=== PATIENT | male | born 1995 | race Caucasian/White ===

== ENCOUNTER 2017-07-01 05:58 | Emergency (ER) | payer OTHER ==
[~2017-07-01] VITALS: Ht 175.3 cm; Wt 82.0 kg
[2017-07-01 06:49] LABS: BASOPHILS % 0.4 % (0.0-2.0); CHLORIDE 110 mEq/L (98-107); EOSINOPHILS % 0.7 % (0.0-5.0); HEMATOCRIT. 47.7 % (42.0-52.0); HEMOGLOBIN. 16.6 g/dL (14.0-18.0); LYMPHOCYTES % 13.7 % (20.0-50.0); MEAN CORPUSCULAR VOLUME 89.1 fL (80.0-94.0); MEAN PLATELET VOLUME 8.4 fl (7.4-10.4); MONOCYTES % 9.1 % (2.0-8.0); NEUTROPHILS % 76.1 % (40.0-76.0); PLATELET 250 x1000/uL (130-400); RED BLOOD CELL COUNT 5.35 mill/uL (4.7-6.1); RED CELL DISTRIBUTION WIDTH 13.2 % (11.6-14.6)
[2017-07-01 06:58] LABS: CARBON DIOXIDE 17 mEq/L (21-32); ETHANOL BLOOD < 10 mg/dL
[2017-07-01] MEDS ORDERED: LORAZEPAM 2MG/ML CPJ IM STA (07:14)
[2017-07-01] MEDS ORDERED: OLANZAPINE 10 MG/VIAL IM ONE (07:15)
[2017-07-01 07:30] LABS: CLARITY URINE CLEAR (CLEAR); COLOR URINE DARK YELLOW (YELLOW); KETONES URINE 3+ (NEGATIVE); LEUKOCYTE ESTERASE URINE NEGATIVE (NEGATIVE); NITRITE URINE NEGATIVE (NEGATIVE); OCCULT BLOOD URINE NEGATIVE (NEGATIVE); PH URINE 5.5 (4.5-8.0); PROTEIN URINE TRACE (NEGATIVE); SPECIFIC GRAVITY URINE 1.032 (1.005-1.030)
[2017-07-01] MEDS ORDERED: DIPHENHYDRAMINE 50MG/ML VIAL IM STA (07:43)
[2017-07-01] MEDS ORDERED: LORAZEPAM 1MG TABLET PO ONE (07:45)
[2017-07-01 08:21] LABS: *AMPHETAMINES SCREEN URINE PRESUMTIVE POSITIVE (NEGATIVE); *BARBITURATES SCREEN URINE NEGATIVE (NEGATIVE); *BENZODIAZEPINES SCREEN URINE PRESUMTIVE POSITIVE (NEGATIVE); *COCAINE SCREEN URINE NEGATIVE (NEGATIVE); CANNABINOID URINE SCREEN PRESUMTIVE POSITIVE (NEGATIVE); METHADONE URINE SCREEN NEGATIVE (NEGATIVE); OPIATES URINE SCREEN NEGATIVE (NEGATIVE); PHENCYCLIDINE URINE SCREEN NEGATIVE (NEGATIVE)
[2017-07-01 14:20] VITALS: BP 128/85
== END 2017-07-01 14:51 | disposition home or self-care (01) ==
LOC: ER 05:58
DX: F15.10 Other stimulant abuse, uncomplicated (principal); J45.909 Unspecified asthma, uncomplicated; F32.9 Major depressive disorder, single episode, unspecified; F20.9 Schizophrenia, unspecified
CPT/HCPCS: 36415; 80053; 80305; 81001; 85025; 96372; 99284; G0482; J1200; J2060; J3490; Z7610

== ENCOUNTER 2017-07-14 17:48 | Emergency (ER) | payer OTHER ==
[~2017-07-14] VITALS: Ht 175.3 cm; Wt 81.0 kg
[2017-07-14] MEDS ORDERED: SODIUM CHLORIDE 0.9% 1,000 ML IV ONE ×2 (18:25→22:27)
[2017-07-14] MEDS ORDERED: LORAZEPAM 2MG/ML CPJ IV ONE ×2 (18:30→19:45)
[2017-07-14 18:45] LABS: BASOPHILS % 0.4 % (0.0-2.0); CHLORIDE 105 mEq/L (98-107); EOSINOPHILS % 0.5 % (0.0-5.0); HEMATOCRIT. 46.3 % (42.0-52.0); HEMOGLOBIN. 16.2 g/dL (14.0-18.0); LYMPHOCYTES % 9.8 % (20.0-50.0); MEAN CORPUSCULAR HEMOGLOBIN 30.7 pg (28.0-32.0); MEAN CORPUSCULAR VOLUME 87.8 fL (80.0-94.0); MEAN PLATELET VOLUME 8.5 fl (7.4-10.4); MONOCYTES % 5.8 % (2.0-8.0); NEUTROPHILS % 83.5 % (40.0-76.0); PLATELET 273 x1000/uL (130-400); RED BLOOD CELL COUNT 5.27 mill/uL (4.7-6.1); RED CELL DISTRIBUTION WIDTH 13.2 % (11.6-14.6)
[2017-07-14 18:50] LABS: CARBON DIOXIDE 18 mEq/L (21-32)
[2017-07-14] MEDS ORDERED: HALOPERIDOL LACTATE 5MG/ML VIAL IM ONE ×2 (20:14→20:15)
[2017-07-15 00:35] LABS: *AMPHETAMINES SCREEN URINE PRESUMTIVE POSITIVE (NEGATIVE); *BARBITURATES SCREEN URINE NEGATIVE (NEGATIVE); *BENZODIAZEPINES SCREEN URINE NEGATIVE (NEGATIVE); *COCAINE SCREEN URINE NEGATIVE (NEGATIVE); CANNABINOID URINE SCREEN PRESUMTIVE POSITIVE (NEGATIVE); METHADONE URINE SCREEN NEGATIVE (NEGATIVE); OPIATES URINE SCREEN NEGATIVE (NEGATIVE); PHENCYCLIDINE URINE SCREEN NEGATIVE (NEGATIVE)
[2017-07-15 04:15] VITALS: BP 127/74
== END 2017-07-15 04:37 | disposition home or self-care (01) ==
LOC: ER 18:03
DX: F19.959 Other psychoactive substance use, unspecified with psychoactive substance-induced psychotic disorder, unspecified (principal); F20.9 Schizophrenia, unspecified; F32.9 Major depressive disorder, single episode, unspecified; J45.909 Unspecified asthma, uncomplicated; F17.200 Nicotine dependence, unspecified, uncomplicated; F12.10 Cannabis abuse, uncomplicated; F15.10 Other stimulant abuse, uncomplicated
CPT/HCPCS: 36415; 80048; 80305; 85025; 93005; 96361; 96372; 96374; 96376; 99285; J1630; J2060; J7030; Z7610; A4315

== ENCOUNTER 2017-09-15 08:14 | Emergency (ER) | payer OTHER ==
[~2017-09-15] VITALS: Ht 172.7 cm; Wt 85.0 kg
[2017-09-15] MEDS ORDERED: SODIUM CHLORIDE 0.9% 1,000 ML IV ONE (08:36)
[2017-09-15] MEDS ORDERED: LORAZEPAM 2MG/ML CPJ IV ONE (08:45)
[2017-09-15 09:07] LABS: BASOPHILS % 0.4 % (0.0-2.0); EOSINOPHILS % 3.4 % (0.0-5.0); HEMATOCRIT. 45.6 % (42.0-52.0); HEMOGLOBIN. 15.8 g/dL (14.0-18.0); LYMPHOCYTES % 18.7 % (20.0-50.0); MEAN CORPUSCULAR HEMOGLOBIN 30.3 pg (28.0-32.0); MEAN CORPUSCULAR VOLUME 87.5 fL (80.0-94.0); MEAN PLATELET VOLUME 8.3 fl (7.4-10.4); MONOCYTES % 7.3 % (2.0-8.0); NEUTROPHILS % 70.2 % (40.0-76.0); PLATELET 252 x1000/uL (130-400); RED BLOOD CELL COUNT 5.21 mill/uL (4.7-6.1); RED CELL DISTRIBUTION WIDTH 13.4 % (11.6-14.6)
[2017-09-15 09:20] LABS: CHLORIDE 108 mEq/L (98-107)
[2017-09-15 09:25] LABS: ETHANOL BLOOD < 10 mg/dL
[2017-09-15 09:50] LABS: *AMPHETAMINES SCREEN URINE PRESUMTIVE POSITIVE (NEGATIVE); *BARBITURATES SCREEN URINE NEGATIVE (NEGATIVE); *BENZODIAZEPINES SCREEN URINE NEGATIVE (NEGATIVE); *COCAINE SCREEN URINE NEGATIVE (NEGATIVE); CANNABINOID URINE SCREEN PRESUMTIVE POSITIVE (NEGATIVE); METHADONE URINE SCREEN NEGATIVE (NEGATIVE); OPIATES URINE SCREEN NEGATIVE (NEGATIVE); PHENCYCLIDINE URINE SCREEN NEGATIVE (NEGATIVE)
[2017-09-15 10:53] VITALS: BP 125/77
== END 2017-09-15 11:07 | disposition home or self-care (01) ==
LOC: ER 08:14
DX: R00.2 Palpitations (principal); F15.10 Other stimulant abuse, uncomplicated; F41.9 Anxiety disorder, unspecified; J45.909 Unspecified asthma, uncomplicated; F32.9 Major depressive disorder, single episode, unspecified; F20.9 Schizophrenia, unspecified; F12.10 Cannabis abuse, uncomplicated
CPT/HCPCS: 36415; 71045; 80048; 80305; 80307; 80329; 85025; 93005; 96361; 96374; 99285; G0482; J2060; J7030

== ENCOUNTER 2023-11-14 23:12 | Emergency (ER) | payer MEDICAID, OTHER ==
[~2023-11-14] VITALS: Ht 167.6 cm; Wt 90.0 kg
[2023-11-14 23:14] VITALS: O2SAT 99
[2023-11-15 00:08] VITALS: TEMP 98.4
[2023-11-15] MEDS: SODIUM CHLORIDE 0.9% 1,000 ML IV ONE (00:21)
[2023-11-15 00:25] LABS: BASOPHILS % 0.4 % (0.0-2.0); EOSINOPHILS % 0.1 % (0.0-5.0); HEMATOCRIT. 44.1 % (42.0-52.0); HEMOGLOBIN. 15.7 g/dL (14.0-18.0); LYMPHOCYTES % 18.1 % (20.0-50.0); MEAN CORPUSCULAR HEMOGLOBIN 30.9 pg (28.0-32.0); MEAN CORPUSCULAR HGB CONC 35.5 g/dL (31.0-37.0); MEAN CORPUSCULAR VOLUME 87.1 fL (80.0-94.0); MEAN PLATELET VOLUME 8.4 fl (7.4-10.4); NEUTROPHILS % 72.4 % (40.0-76.0); PLATELET 293 x1000/uL (130-400); RED BLOOD CELL COUNT 5.07 mill/uL (4.7-6.1); RED CELL DISTRIBUTION WIDTH 13.4 % (11.6-14.6)
[2023-11-15 00:35] LABS: CHLORIDE 110 mEq/L (98-107); POTASSIUM 3.2 mEq/L (3.5-5.1); SODIUM 142 mEq/L (136-145)
[2023-11-15 00:36] LABS: CALCIUM 9.8 mg/dL (8.7-10.4); CARBON DIOXIDE 18 mEq/L (21-32)
[2023-11-15 00:41] LABS: CREATININE 1.1 mg/dL (0.6-1.3); GLUCOSE 98 mg/dL (70-105); UREA NITROGEN BLOOD 12 mg/dL (9-23)
[2023-11-15 00:43] LABS: ACETAMINOPHEN < 2 ug/mL (10-30); ALANINE AMINOTRANSFERASE 129 IU/L (10-49); ALBUMIN 5.4 g/dL (3.2-4.8); ASPARTATE AMINOTRANSFERASE 76 IU/L (<34); BILIRUBIN TOTAL 2.3 mg/dL (0.1-1.0); PROTEIN TOTAL 8.8 g/dL (6.0-8.3)
[2023-11-15 00:45] LABS: ETHANOL BLOOD < 10 mg/dL (<10)
[2023-11-15] MEDS: POTASSIUM CHLORIDE 20MEQ/PACKET PO NR (01:28)
[2023-11-15 02:00] VITALS: BP 151/89; PULSE 87; RESP 20
== END 2023-11-15 04:04 | disposition left against medical advice (07) ==
LOC: ER 23:12
DX: F23 Brief psychotic disorder (principal); F12.10 Cannabis abuse, uncomplicated; F15.10 Other stimulant abuse, uncomplicated; J45.909 Unspecified asthma, uncomplicated; F32.9 Major depressive disorder, single episode, unspecified; I10 Essential (primary) hypertension
CPT/HCPCS: 36415; 93005; 99284; 80053; 80307; 80329; 80320; 85025; 96360; J7030; G0480

== ENCOUNTER 2023-11-15 04:50 | Emergency (ER) | payer MEDICAID ==
[~2023-11-15] VITALS: Ht 177.8 cm; Wt 102.0 kg
[2023-11-15 05:06] VITALS: O2SAT 98
[2023-11-15 05:48] LABS: BASOPHILS % 0.5 % (0.0-2.0); EOSINOPHILS % 0.3 % (0.0-5.0); HEMATOCRIT. 43.8 % (42.0-52.0); HEMOGLOBIN. 15.3 g/dL (14.0-18.0); LYMPHOCYTES % 20.2 % (20.0-50.0); MEAN CORPUSCULAR HEMOGLOBIN 30.9 pg (28.0-32.0); MEAN CORPUSCULAR HGB CONC 34.9 g/dL (31.0-37.0); MEAN CORPUSCULAR VOLUME 88.4 fL (80.0-94.0); MEAN PLATELET VOLUME 8.4 fl (7.4-10.4); MONOCYTES % 9.2 % (2.0-8.0); NEUTROPHILS % 69.8 % (40.0-76.0); PLATELET 301 x1000/uL (130-400); RED BLOOD CELL COUNT 4.96 mill/uL (4.7-6.1); RED CELL DISTRIBUTION WIDTH 13.2 % (11.6-14.6); WHITE BLOOD COUNT 13.4 x1000/uL (4.5-11.0)
[2023-11-15 05:54] LABS: CHLORIDE 111 mEq/L (98-107); POTASSIUM 3.5 mEq/L (3.5-5.1); SODIUM 140 mEq/L (136-145)
[2023-11-15 05:55] LABS: CALCIUM 9.5 mg/dL (8.7-10.4); CARBON DIOXIDE 19 mEq/L (21-32)
[2023-11-15] MEDS: LORAZEPAM 1MG TABLET PO ONE (05:58)
[2023-11-15 06:00] LABS: GLUCOSE 89 mg/dL (70-105); UREA NITROGEN BLOOD 11 mg/dL (9-23)
[2023-11-15 06:01] LABS: ETHANOL BLOOD < 10 mg/dL (<10)
[2023-11-15 06:02] LABS: ACETAMINOPHEN < 2 ug/mL (10-30); ALANINE AMINOTRANSFERASE 129 IU/L (10-49); ALBUMIN 5.4 g/dL (3.2-4.8); ASPARTATE AMINOTRANSFERASE 90 IU/L (<34); BILIRUBIN TOTAL 2.7 mg/dL (0.1-1.0); PROTEIN TOTAL 8.8 g/dL (6.0-8.3)
[2023-11-15 06:07] LABS: CLARITY URINE CLEAR (CLEAR); COLOR URINE YELLOW (YELLOW); GLUCOSE URINE NEGATIVE (NEGATIVE); KETONES URINE 4+ (NEGATIVE); LEUKOCYTE ESTERASE URINE NEGATIVE (NEGATIVE); NITRITE URINE NEGATIVE (NEGATIVE); OCCULT BLOOD URINE NEGATIVE (NEGATIVE); PH URINE 6.5 (4.5-8.0); PROTEIN URINE 1+ (NEGATIVE); SPECIFIC GRAVITY URINE 1.025 (1.005-1.030)
[2023-11-15 06:15] LABS: *AMPHETAMINES SCREEN URINE PRESUMPTIVE POSITIVE (NEGATIVE); *BARBITURATES SCREEN URINE NEGATIVE (NEGATIVE); *BENZODIAZEPINES SCREEN URINE NEGATIVE (NEGATIVE); *COCAINE SCREEN URINE NEGATIVE (NEGATIVE); CANNABINOID URINE SCREEN PRESUMPTIVE POSITIVE (NEGATIVE); ECSTASY MDMA SCREEN URINE NEGATIVE (NEGATIVE); METHADONE URINE SCREEN NEGATIVE (NEGATIVE); OPIATES URINE SCREEN NEGATIVE (NEGATIVE); PHENCYCLIDINE URINE SCREEN NEGATIVE (NEGATIVE)
[2023-11-15] MEDS: OLANZAPINE 10 MG/VIAL IM ONE (07:11)
[2023-11-15 07:28] LABS: BACTERIA URINE NONE SEEN; RBC URINE 0-2 /hpf (0-2); SQUAMOUS EPITHELIAL CELL URINE NONE SEEN /lpf (RARE/1+); WBC URINE 0-2 /hpf (0-2)
[2023-11-15 13:28] VITALS: BP 131/78; PULSE 78; RESP 17; TEMP 98.2
== END 2023-11-15 13:31 | disposition home or self-care (01) ==
LOC: ER 05:13
DX: F15.10 Other stimulant abuse, uncomplicated (principal); J45.909 Unspecified asthma, uncomplicated; F20.9 Schizophrenia, unspecified; I10 Essential (primary) hypertension; Z20.822 Contact with and (suspected) exposure to COVID-19
CPT/HCPCS: 80053; 80305; 81003; 80307; 80329; 80320; 85025; 36415; 96372; 99285; 87426; J3490; G0480

== ENCOUNTER 2024-09-15 16:00 | Emergency (ER) | payer OTHER ==
[~2024-09-15] VITALS: Ht 170.2 cm; Wt 100.0 kg
[2024-09-15 16:02] VITALS: O2SAT 100
[2024-09-15] MEDS: OLANZAPINE 10 MG/VIAL IM STA (16:07)
[2024-09-15] MEDS: DIPHENHYDRAMINE 50MG/ML VIAL IM STA (16:25)
[2024-09-15 16:34] LABS: CLARITY URINE CLEAR (CLEAR); COLOR URINE DARK YELLOW (YELLOW); GLUCOSE URINE NEGATIVE (NEGATIVE); KETONES URINE 2+ (NEGATIVE); LEUKOCYTE ESTERASE URINE TRACE (NEGATIVE); NITRITE URINE NEGATIVE (NEGATIVE); OCCULT BLOOD URINE NEGATIVE (NEGATIVE); PH URINE 5.5 (4.5-8.0); PROTEIN URINE 2+ (NEGATIVE); SPECIFIC GRAVITY URINE 1.035 (1.005-1.030)
[2024-09-15] MEDS: LORAZEPAM 2MG/ML INJ IM ONE (16:42)
[2024-09-15] MEDS: ZIPRASIDONE MESYLATE 20MG/VIAL IM ONE (16:42)
[2024-09-15 16:47] LABS: *AMPHETAMINES SCREEN URINE PRESUMPTIVE POSITIVE (NEGATIVE); *BARBITURATES SCREEN URINE NEGATIVE (NEGATIVE); *BENZODIAZEPINES SCREEN URINE NEGATIVE (NEGATIVE)
[2024-09-15 16:48] LABS: *COCAINE SCREEN URINE NEGATIVE (NEGATIVE); CANNABINOID URINE SCREEN PRESUMPTIVE POSITIVE (NEGATIVE); ECSTASY MDMA SCREEN URINE CONF.TEST INDICATED (NEGATIVE); METHADONE URINE SCREEN NEGATIVE (NEGATIVE); OPIATES URINE SCREEN NEGATIVE (NEGATIVE); PHENCYCLIDINE URINE SCREEN NEGATIVE (NEGATIVE)
[2024-09-15 16:52] LABS: BACTERIA URINE 1+; RBC URINE 0-2 /hpf (0-2); SQUAMOUS EPITHELIAL CELL URINE FEW /lpf (RARE/1+); WBC URINE 0-2 /hpf (0-2)
[2024-09-15 18:32] LABS: BASOPHILS % 0.5 % (0.0-2.0); EOSINOPHILS % 0.7 % (0.0-5.0); HEMATOCRIT. 43.5 % (42.0-52.0); HEMOGLOBIN. 15.1 g/dL (14.0-18.0); LYMPHOCYTES % 13.5 % (20.0-50.0); MEAN CORPUSCULAR HEMOGLOBIN 30.7 pg (28.0-32.0); MEAN CORPUSCULAR HGB CONC 34.6 g/dL (31.0-37.0); MEAN CORPUSCULAR VOLUME 88.8 fL (80.0-94.0); MEAN PLATELET VOLUME 8.5 fl (7.4-10.4); NEUTROPHILS % 77.3 % (40.0-76.0); PLATELET 254 x1000/uL (130-400); RED CELL DISTRIBUTION WIDTH 13.4 % (11.6-14.6); WHITE BLOOD COUNT 10.3 x1000/uL (4.5-11.0)
[2024-09-15 18:33] LABS: CHLORIDE 106 mEq/L (98-107); POTASSIUM 3.5 mEq/L (3.5-5.1); SODIUM 141 mEq/L (136-145)
[2024-09-15 18:34] LABS: CALCIUM 9.5 mg/dL (8.7-10.4); CARBON DIOXIDE 22 mEq/L (21-32)
[2024-09-15 18:39] LABS: CREATININE 0.8 mg/dL (0.6-1.3); GLUCOSE 92 mg/dL (70-105); UREA NITROGEN BLOOD 13 mg/dL (9-23)
[2024-09-15 18:40] LABS: ETHANOL BLOOD < 10 mg/dL (<10)
[2024-09-15 18:41] LABS: ACETAMINOPHEN < 2 ug/mL (10-30)
[2024-09-16 08:00] VITALS: BP 123/79; PULSE 99; RESP 18; TEMP 36.9; O2SAT 99
== END 2024-09-16 09:15 | disposition home or self-care (01) ==
LOC: ER 16:00
DX: F19.10 Other psychoactive substance abuse, uncomplicated (principal); F15.10 Other stimulant abuse, uncomplicated; I10 Essential (primary) hypertension; J45.909 Unspecified asthma, uncomplicated; Z20.822 Contact with and (suspected) exposure to COVID-19; Z91.148 Patient's other noncompliance with medication regimen for other reason; Z98.890 Other specified postprocedural states; Z86.59 Personal history of other mental and behavioral disorders
CPT/HCPCS: 80305; 80048; 81003; 80307; 80329; 80320; 85025; 36415; 96372; 99285; 87426; J3490; J1200; J2060; J3486; G0480

== ENCOUNTER 2024-11-07 09:15 | Emergency (ER) | payer OTHER ==
[~2024-11-07] VITALS: Ht 170.2 cm; Wt 77.0 kg
[2024-11-07 09:21] VITALS: BP 142/94; PULSE 131; RESP 16; TEMP 36.3; O2SAT 96
[2024-11-07] MEDS ORDERED: SODIUM CHLORIDE 0.9% 1,000 ML IV ONE (09:45)
[2024-11-07 10:08] LABS: HEMATOCRIT 47.5 % (42.0-52.0); HEMOGLOBIN 16.2 g/dL (14.0-18.0); MEAN CORPUSCULAR HEMOGLOBIN 29.8 pg (28.0-32.0); MEAN CORPUSCULAR HGB CONC 34.1 g/dL (31.0-37.0); MEAN CORPUSCULAR VOLUME 87.4 fL (80.0-94.0); PLATELET 318 x1000/uL (130-400); RED BLOOD CELL COUNT 5.43 mill/uL (4.7-6.1); RED CELL DISTRIBUTION WIDTH 13.6 % (11.6-14.6); WHITE BLOOD COUNT 12.3 x1000/uL (4.5-11.0)
[2024-11-07 10:19] LABS: CHLORIDE 106 mEq/L (98-107); POTASSIUM 3.3 mEq/L (3.5-5.1); SODIUM 139 mEq/L (136-145)
[2024-11-07 10:20] LABS: CALCIUM 9.9 mg/dL (8.7-10.4); CARBON DIOXIDE 23 mEq/L (21-32)
[2024-11-07 10:25] LABS: CREATININE 1.2 mg/dL (0.6-1.3); ETHANOL BLOOD < 10 mg/dL (<10); GLUCOSE 103 mg/dL (70-105); UREA NITROGEN BLOOD 13 mg/dL (9-23)
== END 2024-11-07 10:25 | disposition left against medical advice (07) ==
LOC: ER 09:15
DX: F20.9 Schizophrenia, unspecified (principal); I10 Essential (primary) hypertension; J45.909 Unspecified asthma, uncomplicated; F12.90 Cannabis use, unspecified, uncomplicated; F15.90 Other stimulant use, unspecified, uncomplicated
CPT/HCPCS: 80048; 80320; 85027; 36415; 99283; J7030; G0480

== ENCOUNTER 2024-12-18 19:55 | Emergency (ER) | payer OTHER ==
[~2024-12-18] VITALS: Ht 167.6 cm; Wt 82.0 kg
[2024-12-18] MEDS: OLANZAPINE 10 MG/VIAL IM STA (21:05)
[2024-12-18] MEDS: LORAZEPAM 1MG TABLET PO ONE (21:05)
[2024-12-18 21:29] LABS: BASOPHILS % 0.3 % (0.0-2.0); EOSINOPHILS % 0.2 % (0.0-5.0); HEMATOCRIT. 44.4 % (42.0-52.0); HEMOGLOBIN. 15.4 g/dL (14.0-18.0); LYMPHOCYTES % 10.7 % (20.0-50.0); MEAN CORPUSCULAR HEMOGLOBIN 29.9 pg (28.0-32.0); MEAN CORPUSCULAR HGB CONC 34.7 g/dL (31.0-37.0); MEAN CORPUSCULAR VOLUME 86.3 fL (80.0-94.0); MEAN PLATELET VOLUME 8.8 fl (7.4-10.4); NEUTROPHILS % 81.8 % (40.0-76.0); PLATELET 277 x1000/uL (130-400); RED BLOOD CELL COUNT 5.15 mill/uL (4.7-6.1); RED CELL DISTRIBUTION WIDTH 13.6 % (11.6-14.6); WHITE BLOOD COUNT 18.5 x1000/uL (4.5-11.0)
[2024-12-18 21:29] LABS: CLARITY URINE CLOUDY (CLEAR); COLOR URINE DARK YELLOW (YELLOW); GLUCOSE URINE NEGATIVE (NEGATIVE); KETONES URINE 4+ (NEGATIVE); LEUKOCYTE ESTERASE URINE 3+ (NEGATIVE); NITRITE URINE NEGATIVE (NEGATIVE); OCCULT BLOOD URINE TRACE (NEGATIVE); PH URINE 5.5 (4.5-8.0); PROTEIN URINE 2+ (NEGATIVE)
[2024-12-18 21:38] LABS: BACTERIA URINE 3+; SQUAMOUS EPITHELIAL CELL URINE RARE /lpf (RARE/1+); WBC URINE 15-25 /hpf (0-2)
[2024-12-18 21:40] LABS: CHLORIDE 103 mEq/L (98-107); POTASSIUM 3.3 mEq/L (3.5-5.1); SODIUM 140 mEq/L (136-145)
[2024-12-18 21:41] LABS: CARBON DIOXIDE 16 mEq/L (21-32)
[2024-12-18 21:42] LABS: CALCIUM 10.1 mg/dL (8.7-10.4)
[2024-12-18 21:45] LABS: *AMPHETAMINES SCREEN URINE PRESUMPTIVE POSITIVE (NEGATIVE); *BARBITURATES SCREEN URINE NEGATIVE (NEGATIVE); *BENZODIAZEPINES SCREEN URINE NEGATIVE (NEGATIVE); *COCAINE SCREEN URINE PRESUMPTIVE POSITIVE (NEGATIVE); CANNABINOID URINE SCREEN PRESUMPTIVE POSITIVE (NEGATIVE); ECSTASY MDMA SCREEN URINE CONF.TEST INDICATED (NEGATIVE); METHADONE URINE SCREEN NEGATIVE (NEGATIVE); OPIATES URINE SCREEN NEGATIVE (NEGATIVE); PHENCYCLIDINE URINE SCREEN NEGATIVE (NEGATIVE)
[2024-12-18 21:46] LABS: CREATININE 1.1 mg/dL (0.6-1.3); GLUCOSE 83 mg/dL (70-105); UREA NITROGEN BLOOD 21 mg/dL (9-23)
[2024-12-18 21:47] LABS: ETHANOL BLOOD < 10 mg/dL (<10)
[2024-12-18 21:48] LABS: ACETAMINOPHEN < 2 ug/mL (10-30)
[2024-12-18] MEDS: DOXYCYCLINE HYCLATE 100MG CAPSULE PO NR (22:20)
[2024-12-18] MEDS: DIPHENHYDRAMINE 50MG/ML VIAL IM NR (22:20)
[2024-12-18] MEDS: CEFTRIAXONE SODIUM 500MG VIAL IM NR (22:20)
[2024-12-18 23:00] VITALS: O2SAT 96
[2024-12-19 06:00] VITALS: BP 134/79; PULSE 101; RESP 16; TEMP 36.9; O2SAT 99
== END 2024-12-19 09:59 | disposition home or self-care (01) ==
LOC: ER 19:55
DX: F20.9 Schizophrenia, unspecified (principal); R44.0 Auditory hallucinations; I10 Essential (primary) hypertension; J45.909 Unspecified asthma, uncomplicated; F15.10 Other stimulant abuse, uncomplicated; F12.90 Cannabis use, unspecified, uncomplicated; Z20.822 Contact with and (suspected) exposure to COVID-19; Z79.899 Other long term (current) drug therapy
CPT/HCPCS: 80305; 80048; 81003; 80307; 80329; 80320; 85025; 87086; 36415; 96372; 99285; 87426; J3490; J0696; J1200; Z7610; G0480

== ENCOUNTER 2024-12-21 13:59 | Emergency (ER) | payer OTHER ==
[~2024-12-21] VITALS: Ht 172.7 cm; Wt 82.0 kg
[2024-12-21 14:02] VITALS: O2SAT 99
[2024-12-21] MEDS: LORAZEPAM 1MG TABLET PO ONE (16:08)
[2024-12-21 17:37] VITALS: BP 150/94; PULSE 125; RESP 16; O2SAT 98
== END 2024-12-21 18:01 | disposition home or self-care (01) ==
LOC: ER 13:59
DX: F15.10 Other stimulant abuse, uncomplicated (principal); F14.10 Cocaine abuse, uncomplicated; F31.9 Bipolar disorder, unspecified; Z86.59 Personal history of other mental and behavioral disorders
CPT/HCPCS: 99283

== ENCOUNTER 2024-12-21 19:04 | Emergency (ER) | payer OTHER ==
[~2024-12-21] VITALS: Ht 167.6 cm; Wt 64.0 kg
[2024-12-21 19:22] VITALS: O2SAT 100
[2024-12-21 20:15] LABS: BASOPHILS % 0.8 % (0.0-2.0); EOSINOPHILS % 0.4 % (0.0-5.0); HEMOGLOBIN. 15.3 g/dL (14.0-18.0); LYMPHOCYTES % 17.4 % (20.0-50.0); MEAN CORPUSCULAR HEMOGLOBIN 29.6 pg (28.0-32.0); MEAN CORPUSCULAR HGB CONC 34.8 g/dL (31.0-37.0); MEAN CORPUSCULAR VOLUME 84.9 fL (80.0-94.0); MEAN PLATELET VOLUME 8.6 fl (7.4-10.4); MONOCYTES % 6.8 % (2.0-8.0); NEUTROPHILS % 74.6 % (40.0-76.0); PLATELET 305 x1000/uL (130-400); RED BLOOD CELL COUNT 5.19 mill/uL (4.7-6.1); RED CELL DISTRIBUTION WIDTH 13.3 % (11.6-14.6); WHITE BLOOD COUNT 9.1 x1000/uL (4.5-11.0)
[2024-12-21 20:17] LABS: CHLORIDE 107 mEq/L (98-107); POTASSIUM 2.9 mEq/L (3.5-5.1); SODIUM 140 mEq/L (136-145)
[2024-12-21 20:18] LABS: CALCIUM 9.5 mg/dL (8.7-10.4); CARBON DIOXIDE 17 mEq/L (21-32)
[2024-12-21 20:23] LABS: CREATININE 1.1 mg/dL (0.6-1.3); GLUCOSE 111 mg/dL (70-105)
[2024-12-21 20:24] LABS: ETHANOL BLOOD < 10 mg/dL (<10); UREA NITROGEN BLOOD 13 mg/dL (9-23)
[2024-12-21 20:30] LABS: COLOR URINE YELLOW (YELLOW); GLUCOSE URINE NEGATIVE (NEGATIVE); KETONES URINE 4+ (NEGATIVE); LEUKOCYTE ESTERASE URINE 1+ (NEGATIVE); NITRITE URINE NEGATIVE (NEGATIVE); OCCULT BLOOD URINE TRACE (NEGATIVE); PH URINE 5.5 (4.5-8.0); PROTEIN URINE 2+ (NEGATIVE); SPECIFIC GRAVITY URINE 1.025 (1.005-1.030)
[2024-12-21 20:40] LABS: CLARITY URINE SL HAZY (CLEAR)
[2024-12-21 20:42] LABS: BACTERIA URINE TRACE; RBC URINE NONE SEEN /hpf (0-2); SQUAMOUS EPITHELIAL CELL URINE RARE /lpf (RARE/1+)
[2024-12-21 20:43] LABS: COARSE GRANULAR CASTS URINE 0-5 /lpf; MUCUS URINE 1+ /lpf (NONE/TRACE)
[2024-12-21 20:52] LABS: *AMPHETAMINES SCREEN URINE PRESUMPTIVE POSITIVE (NEGATIVE); *BARBITURATES SCREEN URINE NEGATIVE (NEGATIVE); *BENZODIAZEPINES SCREEN URINE NEGATIVE (NEGATIVE); *COCAINE SCREEN URINE NEGATIVE (NEGATIVE); CANNABINOID URINE SCREEN PRESUMPTIVE POSITIVE (NEGATIVE); ECSTASY MDMA SCREEN URINE CONF.TEST INDICATED (NEGATIVE); METHADONE URINE SCREEN NEGATIVE (NEGATIVE); OPIATES URINE SCREEN NEGATIVE (NEGATIVE); PHENCYCLIDINE URINE SCREEN NEGATIVE (NEGATIVE)
[2024-12-21] MEDS: POTASSIUM CHLORIDE 20MEQ TABLET SR PO SCH (22:04)
[2024-12-22 05:18] VITALS: BP 147/110; PULSE 109; RESP 14; TEMP 36.8; O2SAT 100
[2024-12-22] MEDS ORDERED: LORAZEPAM 2MG/ML INJ IM ONE (05:30)
[2024-12-22] MEDS: LORAZEPAM 2MG/ML UD SYRINGE IM NR (06:09)
== END 2024-12-22 07:10 | disposition home or self-care (01) ==
LOC: ER 19:41
DX: R45.851 Suicidal ideations (principal); F14.10 Cocaine abuse, uncomplicated; F12.10 Cannabis abuse, uncomplicated; F15.10 Other stimulant abuse, uncomplicated; F31.9 Bipolar disorder, unspecified; Z20.822 Contact with and (suspected) exposure to COVID-19; Z86.59 Personal history of other mental and behavioral disorders; Z79.899 Other long term (current) drug therapy
CPT/HCPCS: 80305; 80048; 81003; 80307; 80329; 80320; 85025; 36415; 99285; 87426; 96372; J2060; G0480